=== PATIENT | female | born 1985 | race Caucasian/White ===

== ENCOUNTER 2023-10-08 10:46 | Outpatient (CLI) | payer BC ==
--- NOTE | 2023-10-08 12:59 | XRAY Report ---
PROCEDURE: Ankle 3+V LT INDICATIONS: LEFT ANKLE JOINT PAIN TECHNIQUE: 3 views of the ankle were acquired. COMPARISON: None. FINDINGS: Bones: No acute displaced fracture or dislocation. The ankle mortise appears intact. Moderate plantar calcaneal enthesophytes. Soft tissues: No suspicious calcifications. IMPRESSION: Moderate plantar calcaneal enthesophytes. No acute radiographic abnormality. If there is high concern for further derangement, consider MRI evaluation. Reviewed by: Doe Tyson MD on 10/08/2023 12:58 PM PDT Approved by: Doe Tyson MD on 10/08/2023 12:58 PM PDT Station ID: [id number]
== END 2023-10-08 10:47 | disposition home or self-care (01) ==
LOC: DI 10:46
DX: M77.32 Calcaneal spur, left foot (principal); M25.572 Pain in left ankle and joints of left foot